=== PATIENT | male | born 1975 | race Caucasian/White ===

== ENCOUNTER 2018-03-07 11:12 | Emergency (ER) | payer MEDICARE, MEDICAID ==
[2018-03-07] MEDS ORDERED: morphine 4 MG/ML VIAL (11:58)
[2018-03-07] MEDS ORDERED: ONDANSETRON 4 MG INJ (11:58)
[2018-03-07] MEDS: ONDANSETRON 4 MG INJ IV (11:59)
[2018-03-07] MEDS: morphine 4 MG/ML VIAL IV ×2 (11:59→13:11)
[2018-03-07 12:09] LABS: ADD MAN DIFF? NO
[2018-03-07 12:11] LABS: WHITE BLOOD COUNT 8.8 10^3/ul (4.8-10.8)
[2018-03-07 12:11] LABS: BASOPHIL # 0.1 10^3/ul (0.0-0.1); BASOPHILS % 0.7 % (0.0-2.0); EOSINOPHILS # 0.4 10^3/ul (0.0-0.5); HEMATOCRIT 40.7 % (42.0-52.0); HEMOGLOBIN 13.6 g/dl (14.0-18.0); LYMPHOCYTES # 1.8 10^3/ul (0.8-2.9); LYMPHOCYTES % 20.7 % (15.0-51.0); MEAN CORPUSCULAR HGB CONC 33.4 g/dl (32.0-37.0); MEAN CORPUSCULAR VOLUME 98.8 fl (82.0-101.0); MEAN PLATELET VOLUME 9.5 fl (7.4-10.4); MONOCYTE # 0.7 10^3/ul (0.3-0.9); MONOCYTES % 7.4 % (0.0-11.0); NEUTROPHIL # 5.8 10^3/ul (1.6-7.5); NEUTROPHILS % 65.9 % (39.0-77.0); PLATELET COUNT 205 10^3/UL (140-415); RED BLOOD COUNT 4.12 10^6/ul (4.70-6.10); RED CELL DISTRIBUTION WIDTH 11.8 % (11.5-14.5)
[2018-03-07 12:31] LABS: INR 0.86; PROTIME 11.8 Sec (11.9-14.9); PT RATIO 0.9
[2018-03-07 12:32] LABS: PARTIAL THROMBOPLASTIN TIME 33.9 Sec (25.0-35.0)
[2018-03-07 12:44] LABS: ALANINE AMINOTRANSFERASE 19 IU/L (13-69); ALBUMIN 4.9 g/dl (3.3-4.9); ALBUMIN/GLOBULIN RATIO 1.58; ALKALINE PHOSPHATASE 95 IU/L (42-121); ANION GAP 22 (8-16); ASPARTATE AMINO TRANSFERASE 25 IU/L (15-46); BILIRUBIN,INDIRECT 0.2 mg/dl (0-1.1); BILIRUBIN,TOTAL 0.2 mg/dl (0.2-1.3); BLOOD UREA NITROGEN 31 mg/dl (7-20); CALCIUM 9.1 mg/dl (8.4-10.2); CARBON DIOXIDE 30 mmol/L (21-31); CHLORIDE 94 mmol/L (97-110); CREATININE 8.39 mg/dl (0.61-1.24); GLUCOSE 113 mg/dl (70-220); LIPASE 152 U/L (23-300); POTASSIUM 4.7 mmol/L (3.5-5.1); SODIUM 141 mmol/L (135-144)
[2018-03-07 13:00] LABS: TROPONIN-I < 0.012 ng/ml (0.000-0.120)
== END 2018-03-07 13:35 | disposition home or self-care (01) ==
LOC: E/R 11:12
DX: R10.9 Unspecified abdominal pain (principal); R11.0 Nausea; R40.2142 Coma scale, eyes open, spontaneous, at arrival to emergency department; R40.2362 Coma scale, best motor response, obeys commands, at arrival to emergency department; R40.2252 Coma scale, best verbal response, oriented, at arrival to emergency department; N18.6 End stage renal disease; Z79.82 Long term (current) use of aspirin; Z87.891 Personal history of nicotine dependence; Z99.2 Dependence on renal dialysis
CPT/HCPCS: 36415; 74176; 80053; 83690; 84484; 85025; 85610; 85730; 93005; 96374; 96375; 96376; 99285-25

== ENCOUNTER 2018-05-28 07:29 | Inpatient (IN) | payer MEDICARE, MEDICAID ==
[2018-05-28 07:55] LABS: ADD MAN DIFF? NO
[2018-05-28 07:57] LABS: BASOPHILS % 0.2 % (0.0-2.0); EOSINOPHILS # 0.1 10^3/ul (0.0-0.5); EOSINOPHILS % 0.3 % (0.0-7.0); HEMATOCRIT 45.6 % (42.0-52.0); HEMOGLOBIN 15.5 g/dl (14.0-18.0); LYMPHOCYTES # 2.2 10^3/ul (0.8-2.9); LYMPHOCYTES % 13.6 % (15.0-51.0); MEAN CORPUSCULAR HEMOGLOBIN 33.5 pg (29.0-33.0); MEAN CORPUSCULAR VOLUME 98.7 fl (82.0-101.0); MEAN PLATELET VOLUME 9.4 fl (7.4-10.4); MONOCYTE # 1.1 10^3/ul (0.3-0.9); MONOCYTES % 6.9 % (0.0-11.0); NEUTROPHIL # 12.6 10^3/ul (1.6-7.5); NEUTROPHILS % 78.5 % (39.0-77.0); PLATELET COUNT 210 10^3/UL (140-415); RED BLOOD COUNT 4.62 10^6/ul (4.70-6.10); RED CELL DISTRIBUTION WIDTH 12.9 % (11.5-14.5)
[2018-05-28 07:57] LABS: WHITE BLOOD COUNT 16.1 10^3/ul (4.8-10.8)
[2018-05-28] MEDS: ONDANSETRON 4 MG INJ IV ×5 (07:58→21:53)
[2018-05-28] MEDS: ACETAMINOPHEN 500 MG TAB PO (07:58)
[2018-05-28] MEDS: HYDROmorphONE 1 MG/ML SYG IV ×2 (07:58→10:16)
[2018-05-28] MEDS: SOD CHLORIDE 0.9% 250 ML IV (08:00)
[2018-05-28 08:15] LABS: ALANINE AMINOTRANSFERASE 23 IU/L (13-69); ALBUMIN 4.8 g/dl (3.3-4.9); ALBUMIN/GLOBULIN RATIO 1.17; ALKALINE PHOSPHATASE 95 IU/L (42-121); ANION GAP 18 (8-16); ASPARTATE AMINO TRANSFERASE 18 IU/L (15-46); BILIRUBIN,INDIRECT 0.9 mg/dl (0-1.1); BILIRUBIN,TOTAL 0.9 mg/dl (0.2-1.3); BLOOD UREA NITROGEN 28 mg/dl (7-20); CALCIUM 9.8 mg/dl (8.4-10.2); CARBON DIOXIDE 34 mmol/L (21-31); CHLORIDE 91 mmol/L (97-110); CREATININE 9.62 mg/dl (0.61-1.24); GLUCOSE 100 mg/dl (70-220); POTASSIUM 4.1 mmol/L (3.5-5.1); SODIUM 139 mmol/L (135-144); TOTAL PROTEIN 8.9 g/dl (6.1-8.1)
[2018-05-28 08:17] LABS: INR 0.88; PARTIAL THROMBOPLASTIN TIME 34.5 Sec (25.0-35.0); PT RATIO 0.9
[2018-05-28] MEDS: SOD CHLORIDE 0.9% 1,000 ML IV (10:05)
[2018-05-28] MEDS: ERTAPENEM SODIUM 1 GM in SOD CHLORIDE 0.9% 100 ML IVPB (10:15)
[2018-05-28] MEDS ORDERED: ACETAMINOPHEN 325 MG TAB PO (10:30)
[2018-05-28] MEDS ORDERED: ERTAPENEM SODIUM 1 GM in SOD CHLORIDE 0.9% 100 ML IVPB (14:30)
[2018-05-28] MEDS: CHOLECALCIFEROL 1,000 UNIT TAB PO (14:30)
[2018-05-28] MEDS: FOLIC ACID 1 MG TAB PO (14:30)
[2018-05-28] MEDS ORDERED: ALPRAZOLAM 0.5 MG TAB PO (14:30)
[2018-05-28] MEDS ORDERED: ZOLPIDEM 5 MG TAB PO (15:00)
[2018-05-28] MEDS: D5W-0.45 NACL + KCL 20 MEQ 1,000 ML IV (15:00)
[2018-05-28] MEDS: HYDROmorphONE 2 MG/ML SYG IV ×2 (15:40→21:53)
[2018-05-28] MEDS: CALCIUM ACETATE 667 MG CAP PO (17:03)
[2018-05-28] MEDS ORDERED: ERTAPENEM SODIUM 0.5 GM in SOD CHLORIDE 0.9% 100 ML IVPB (18:00)
[2018-05-28] MEDS: IVABRADINE HCL 5 MG TABLET PO (21:53)
[2018-05-28] MEDS: ALLOPURINOL 300 MG TAB PO (21:53)
[2018-05-28] MEDS: ATORVASTATIN 40 MG TAB PO (21:53)
[2018-05-28] MEDS: metroNIDAZOLE 500 MG/NS (PMX) 100 ML IVPB (21:53)
[2018-05-29] MEDS: ONDANSETRON 4 MG INJ IV ×2 (03:47→08:41)
[2018-05-29] MEDS: HYDROmorphONE 2 MG/ML SYG IV ×4 (03:47→22:23)
[2018-05-29] MEDS: metroNIDAZOLE 500 MG/NS (PMX) 100 ML IVPB ×3 (05:13→22:23)
[2018-05-29 08:20] LABS: ADD MAN DIFF? NO
[2018-05-29 08:33] LABS: WHITE BLOOD COUNT 10.3 10^3/ul (4.8-10.8)
[2018-05-29 08:33] LABS: BASOPHIL # 0.1 10^3/ul (0.0-0.1); BASOPHILS % 0.6 % (0.0-2.0); EOSINOPHILS # 0.1 10^3/ul (0.0-0.5); EOSINOPHILS % 0.8 % (0.0-7.0); HEMATOCRIT 42.5 % (42.0-52.0); HEMOGLOBIN 13.8 g/dl (14.0-18.0); LYMPHOCYTES % 9.8 % (15.0-51.0); MEAN CORPUSCULAR HEMOGLOBIN 32.9 pg (29.0-33.0); MEAN CORPUSCULAR HGB CONC 32.5 g/dl (32.0-37.0); MEAN CORPUSCULAR VOLUME 101.4 fl (82.0-101.0); MONOCYTE # 0.7 10^3/ul (0.3-0.9); NEUTROPHIL # 8.3 10^3/ul (1.6-7.5); NEUTROPHILS % 81.3 % (39.0-77.0); PLATELET COUNT 201 10^3/UL (140-415); RED BLOOD COUNT 4.19 10^6/ul (4.70-6.10); RED CELL DISTRIBUTION WIDTH 12.7 % (11.5-14.5)
[2018-05-29] MEDS: IVABRADINE HCL 5 MG TABLET PO ×2 (08:36→20:46)
[2018-05-29] MEDS: FOLIC ACID 1 MG TAB PO (08:36)
[2018-05-29] MEDS: CALCIUM ACETATE 667 MG CAP PO ×3 (08:36→18:00)
[2018-05-29] MEDS: CHOLECALCIFEROL 1,000 UNIT TAB PO (08:36)
[2018-05-29] MEDS: ALLOPURINOL 300 MG TAB PO ×2 (08:38→20:46)
[2018-05-29 08:59] LABS: B-TYPE NATRIURETIC PEPTIDE 3000 PG/ML (0-125)
[2018-05-29 09:03] LABS: ANION GAP 27 (8-16); BLOOD UREA NITROGEN 48 mg/dl (7-20); CALCIUM 9.4 mg/dl (8.4-10.2); CARBON DIOXIDE 26 mmol/L (21-31); CHLORIDE 92 mmol/L (97-110); CREATININE 13.22 mg/dl (0.61-1.24); GLUCOSE 61 mg/dl (70-220); POTASSIUM 5.1 mmol/L (3.5-5.1); SODIUM 140 mmol/L (135-144)
[2018-05-29] MEDS: D5W-0.45 NACL + KCL 20 MEQ 1,000 ML IV (11:00)
[2018-05-29] MEDS: PANTOPRAZOLE (EC) 40 MG TAB PO (13:41)
[2018-05-29] MEDS: ERTAPENEM SODIUM 0.5 GM in SOD CHLORIDE 0.9% 100 ML IVPB (18:27)
[2018-05-29] MEDS: ATORVASTATIN 40 MG TAB PO (20:46)
[2018-05-30] MEDS: HYDROmorphONE 2 MG/ML SYG IV ×3 (05:13→18:31)
[2018-05-30] MEDS: PANTOPRAZOLE (EC) 40 MG TAB PO (05:13)
[2018-05-30] MEDS: metroNIDAZOLE 500 MG/NS (PMX) 100 ML IVPB ×4 (05:13→23:38)
[2018-05-30] MEDS: D5W-0.45 NACL + KCL 20 MEQ 1,000 ML IV (07:00)
[2018-05-30 07:07] LABS: ADD MAN DIFF? NO
[2018-05-30 07:12] LABS: WHITE BLOOD COUNT 8.8 10^3/ul (4.8-10.8)
[2018-05-30 07:12] LABS: BASOPHIL # 0.1 10^3/ul (0.0-0.1); BASOPHILS % 0.7 % (0.0-2.0); EOSINOPHILS # 0.5 10^3/ul (0.0-0.5); EOSINOPHILS % 5.1 % (0.0-7.0); HEMATOCRIT 37.3 % (42.0-52.0); HEMOGLOBIN 12.5 g/dl (14.0-18.0); LYMPHOCYTES # 1.7 10^3/ul (0.8-2.9); MEAN CORPUSCULAR HEMOGLOBIN 33.1 pg (29.0-33.0); MEAN CORPUSCULAR HGB CONC 33.5 g/dl (32.0-37.0); MEAN CORPUSCULAR VOLUME 98.7 fl (82.0-101.0); MEAN PLATELET VOLUME 9.9 fl (7.4-10.4); MONOCYTE # 0.7 10^3/ul (0.3-0.9); MONOCYTES % 8.2 % (0.0-11.0); NEUTROPHIL # 5.9 10^3/ul (1.6-7.5); NEUTROPHILS % 66.8 % (39.0-77.0); PLATELET COUNT 196 10^3/UL (140-415); RED BLOOD COUNT 3.78 10^6/ul (4.70-6.10); RED CELL DISTRIBUTION WIDTH 12.6 % (11.5-14.5)
[2018-05-30] MEDS: ONDANSETRON 4 MG INJ IV ×3 (07:38→18:31)
[2018-05-30 07:59] LABS: B-TYPE NATRIURETIC PEPTIDE 2900 PG/ML (0-125)
[2018-05-30] MEDS: CALCIUM ACETATE 667 MG CAP PO ×3 (08:00→18:30)
[2018-05-30 08:01] LABS: BLOOD UREA NITROGEN 65 mg/dl (7-20); CALCIUM 9.1 mg/dl (8.4-10.2); CARBON DIOXIDE 26 mmol/L (21-31); GLUCOSE 75 mg/dl (70-220)
[2018-05-30 08:14] LABS: ANION GAP 25 (8-16); CHLORIDE 91 mmol/L (97-110); POTASSIUM 5.3 mmol/L (3.5-5.1); SODIUM 137 mmol/L (135-144)
[2018-05-30 08:15] LABS: CREATININE 15.97 mg/dl (0.61-1.24)
[2018-05-30] MEDS: CHOLECALCIFEROL 1,000 UNIT TAB PO (09:00)
[2018-05-30] MEDS: IVABRADINE HCL 5 MG TABLET PO ×2 (09:00→21:01)
[2018-05-30] MEDS: FOLIC ACID 1 MG TAB PO (09:00)
[2018-05-30] MEDS: ALLOPURINOL 300 MG TAB PO ×2 (09:00→21:36)
[2018-05-30] MEDS ORDERED: HYDROmorphONE 2 MG/ML SYG IV (11:30)
[2018-05-30 12:17] LABS: HEPATITIS B SURFACE ANTIGEN NEGATIVE (NEGATIVE)
[2018-05-30 12:43] LABS: HEPATITIS B SURFACE ANTIBODY POSITIVE (NEGATIVE)
[2018-05-30] MEDS: ATORVASTATIN 40 MG TAB PO (21:01)
[2018-05-30] MEDS: ERTAPENEM SODIUM 0.5 GM in SOD CHLORIDE 0.9% 100 ML IVPB (21:37)
[2018-05-30] MEDS: DOCOSANOL 2 GM CREAM TOP (22:52)
[2018-05-30] MEDS: CIPROFLOXACIN 0.3% 2.5 ML OPH LEFT EYE (23:12)
[2018-05-31] MEDS: D5W-0.45 NACL + KCL 20 MEQ 1,000 ML IV (03:00)
[2018-05-31] MEDS: metroNIDAZOLE 500 MG/NS (PMX) 100 ML IVPB ×2 (06:17→14:00)
[2018-05-31] MEDS: PANTOPRAZOLE (EC) 40 MG TAB PO (06:18)
[2018-05-31] MEDS: ONDANSETRON 4 MG INJ IV (06:45)
[2018-05-31 07:13] LABS: ADD MAN DIFF? NO
[2018-05-31 07:17] LABS: WHITE BLOOD COUNT 6.2 10^3/ul (4.8-10.8)
[2018-05-31 07:17] LABS: BASOPHILS % 0.6 % (0.0-2.0); EOSINOPHILS # 0.4 10^3/ul (0.0-0.5); EOSINOPHILS % 6.9 % (0.0-7.0); HEMOGLOBIN 13.1 g/dl (14.0-18.0); LYMPHOCYTES # 1.1 10^3/ul (0.8-2.9); LYMPHOCYTES % 17.6 % (15.0-51.0); MEAN CORPUSCULAR HEMOGLOBIN 33.5 pg (29.0-33.0); MEAN CORPUSCULAR HGB CONC 33.6 g/dl (32.0-37.0); MEAN CORPUSCULAR VOLUME 99.7 fl (82.0-101.0); MEAN PLATELET VOLUME 9.7 fl (7.4-10.4); MONOCYTE # 0.5 10^3/ul (0.3-0.9); MONOCYTES % 8.5 % (0.0-11.0); NEUTROPHIL # 4.1 10^3/ul (1.6-7.5); NEUTROPHILS % 66.2 % (39.0-77.0); PLATELET COUNT 189 10^3/UL (140-415); RED BLOOD COUNT 3.91 10^6/ul (4.70-6.10); RED CELL DISTRIBUTION WIDTH 12.3 % (11.5-14.5)
[2018-05-31 07:50] LABS: ANION GAP 21 (8-16); BLOOD UREA NITROGEN 35 mg/dl (7-20); CALCIUM 9.5 mg/dl (8.4-10.2); CARBON DIOXIDE 27 mmol/L (21-31); CHLORIDE 96 mmol/L (97-110); CREATININE 11.95 mg/dl (0.61-1.24); GLUCOSE 81 mg/dl (70-220); POTASSIUM 5.6 mmol/L (3.5-5.1); SODIUM 138 mmol/L (135-144)
[2018-05-31 07:52] LABS: B-TYPE NATRIURETIC PEPTIDE 2850 PG/ML (0-125)
[2018-05-31] MEDS: NA POLYST SULFON 15 GM/60 ML BTL PO (08:30)
[2018-05-31] MEDS: ALLOPURINOL 300 MG TAB PO (09:29)
[2018-05-31] MEDS: CIPROFLOXACIN 0.3% 2.5 ML OPH LEFT EYE ×2 (09:29→12:31)
[2018-05-31] MEDS: IVABRADINE HCL 5 MG TABLET PO (09:29)
[2018-05-31] MEDS: CHOLECALCIFEROL 1,000 UNIT TAB PO (09:29)
[2018-05-31] MEDS: FOLIC ACID 1 MG TAB PO (09:29)
[2018-05-31] MEDS: CALCIUM ACETATE 667 MG CAP PO ×2 (09:30→12:30)
[2018-05-31] MEDS: DOCOSANOL 2 GM CREAM TOP ×2 (09:31→12:31)
[2018-05-31] MEDS: HYDROmorphONE 2 MG/ML SYG IV (12:34)
== END 2018-05-31 17:15 | disposition home or self-care (01) | DRG 377 ==
LOC: E/R 07:29 → 2NE 10:06
PROC: 5A1D70Z Performance of Urinary Filtration, Intermittent, Less than 6 Hours Per Day (ICD-10-PCS; principal; 2018-05-30)
DX: K57.21 Diverticulitis of large intestine with perforation and abscess with bleeding (principal); N18.6 End stage renal disease; I12.0 Hypertensive chronic kidney disease with stage 5 chronic kidney disease or end stage renal disease; I25.2 Old myocardial infarction; I25.10 Atherosclerotic heart disease of native coronary artery without angina pectoris; Z95.810 Presence of automatic (implantable) cardiac defibrillator; Z99.2 Dependence on renal dialysis; F17.200 Nicotine dependence, unspecified, uncomplicated; Z91.14 Patient's other noncompliance with medication regimen; K59.09 Other constipation; M19.90 Unspecified osteoarthritis, unspecified site; F41.9 Anxiety disorder, unspecified; K21.9 Gastro-esophageal reflux disease without esophagitis; I73.9 Peripheral vascular disease, unspecified; J44.9 Chronic obstructive pulmonary disease, unspecified
CPT/HCPCS: 36415; 74176; 80048; 80053; 83880; 85025; 85610; 85730; 86706; 87340; 90935; 96361; 96374; 96375; 99285-25

== ENCOUNTER 2018-10-02 07:15 | Emergency (ER) | payer MEDICARE, MEDICAID ==
[2018-10-02 08:05] LABS: ADD MAN DIFF? NO
[2018-10-02 08:07] LABS: BASOPHIL # 0.1 10^3/ul (0.0-0.1); BASOPHILS % 0.8 % (0.0-2.0); EOSINOPHILS # 0.6 10^3/ul (0.0-0.5); EOSINOPHILS % 8.9 % (0.0-7.0); HEMATOCRIT 33.8 % (42.0-52.0); HEMOGLOBIN 11.2 g/dl (14.0-18.0); LYMPHOCYTES # 1.5 10^3/ul (0.8-2.9); LYMPHOCYTES % 20.4 % (15.0-51.0); MEAN CORPUSCULAR HEMOGLOBIN 33.2 pg (29.0-33.0); MEAN CORPUSCULAR HGB CONC 33.1 g/dl (32.0-37.0); MEAN CORPUSCULAR VOLUME 100.3 fl (82.0-101.0); MEAN PLATELET VOLUME 9.7 fl (7.4-10.4); MONOCYTE # 0.4 10^3/ul (0.3-0.9); MONOCYTES % 5.5 % (0.0-11.0); NEUTROPHIL # 4.6 10^3/ul (1.6-7.5); NEUTROPHILS % 64.1 % (39.0-77.0); PLATELET COUNT 200 10^3/UL (140-415); RED BLOOD COUNT 3.37 10^6/ul (4.70-6.10); RED CELL DISTRIBUTION WIDTH 11.7 % (11.5-14.5)
[2018-10-02 08:07] LABS: WHITE BLOOD COUNT 7.2 10^3/ul (4.8-10.8)
[2018-10-02] MEDS: ONDANSETRON 4 MG INJ IV (08:18)
[2018-10-02] MEDS: FAMOTIDINE 20 MG TAB PO (08:18)
[2018-10-02] MEDS: BELLADONNA/PHENOBARBITAL TAB PO (08:19)
[2018-10-02] MEDS: LIDOCAINE/MYLANTA 40 ML BTL PO (08:19)
[2018-10-02] MEDS: KETOROLAC 15 MG INJ IV (08:21)
[2018-10-02 08:26] LABS: INR 0.89; PROTIME 12.1 Sec (11.9-14.9); PT RATIO 0.9
[2018-10-02 08:27] LABS: ALANINE AMINOTRANSFERASE 16 IU/L (13-69); ALBUMIN 4.4 g/dl (3.3-4.9); ALBUMIN/GLOBULIN RATIO 1.22; ALKALINE PHOSPHATASE 75 IU/L (42-121); ANION GAP 14 (5-13); ASPARTATE AMINO TRANSFERASE 23 IU/L (15-46); BILIRUBIN,INDIRECT 0.2 mg/dl (0-1.1); BILIRUBIN,TOTAL 0.2 mg/dl (0.2-1.3); BLOOD UREA NITROGEN 46 mg/dl (7-20); CALCIUM 9.5 mg/dl (8.4-10.2); CARBON DIOXIDE 32 mmol/L (21-31); CHLORIDE 94 mmol/L (97-110); CREATININE 11.96 mg/dl (0.61-1.24); Estimated GFR 5 mL/min (>60); GLUCOSE 92 mg/dl (70-220); LIPASE 119 U/L (23-300); PARTIAL THROMBOPLASTIN TIME 34.8 Sec (23.0-35.0); POTASSIUM 5.4 mmol/L (3.5-5.1); SODIUM 140 mmol/L (135-144)
[2018-10-02] MEDS: NA POLYST SULFON 15 GM/60 ML BTL PO (09:20)
== END 2018-10-02 10:08 | disposition home or self-care (01) ==
LOC: E/R 07:15
DX: R10.84 Generalized abdominal pain (principal); R40.2142 Coma scale, eyes open, spontaneous, at arrival to emergency department; R40.2362 Coma scale, best motor response, obeys commands, at arrival to emergency department; R40.2252 Coma scale, best verbal response, oriented, at arrival to emergency department; E87.5 Hyperkalemia; J02.9 Acute pharyngitis, unspecified; N18.6 End stage renal disease; Z99.2 Dependence on renal dialysis; Z87.891 Personal history of nicotine dependence; Z79.82 Long term (current) use of aspirin
CPT/HCPCS: 36415; 74176; 80053; 83690; 85025; 85610; 85730; 93005; 96374; 96375; 99285-25

== ENCOUNTER 2018-12-05 07:38 | Emergency (ER) | payer MEDICARE, MEDICAID ==
[2018-12-05 08:00] LABS: ADD MAN DIFF? NO
[2018-12-05 08:05] LABS: WHITE BLOOD COUNT 8.7 10^3/ul (4.8-10.8)
[2018-12-05 08:05] LABS: BASOPHIL # 0.1 10^3/ul (0.0-0.1); BASOPHILS % 0.8 % (0.0-2.0); EOSINOPHILS # 0.4 10^3/ul (0.0-0.5); EOSINOPHILS % 4.6 % (0.0-7.0); HEMATOCRIT 36.3 % (42.0-52.0); LYMPHOCYTES # 1.8 10^3/ul (0.8-2.9); LYMPHOCYTES % 20.8 % (15.0-51.0); MEAN CORPUSCULAR HEMOGLOBIN 31.7 pg (29.0-33.0); MEAN CORPUSCULAR HGB CONC 33.1 g/dl (32.0-37.0); MEAN CORPUSCULAR VOLUME 95.8 fl (82.0-101.0); MEAN PLATELET VOLUME 9.3 fl (7.4-10.4); MONOCYTE # 0.6 10^3/ul (0.3-0.9); MONOCYTES % 6.8 % (0.0-11.0); NEUTROPHIL # 5.8 10^3/ul (1.6-7.5); NEUTROPHILS % 66.5 % (39.0-77.0); PLATELET COUNT 209 10^3/UL (140-415); RED BLOOD COUNT 3.79 10^6/ul (4.70-6.10); RED CELL DISTRIBUTION WIDTH 12.4 % (11.5-14.5)
[2018-12-05 08:26] LABS: ANION GAP 17 (5-13); BLOOD UREA NITROGEN 33 mg/dl (7-20); CALCIUM 9.5 mg/dl (8.4-10.2); CARBON DIOXIDE 30 mmol/L (21-31); CHLORIDE 93 mmol/L (97-110); Estimated GFR 7 mL/min (>60); GLUCOSE 89 mg/dl (70-220); POTASSIUM 4.1 mmol/L (3.5-5.1); SODIUM 140 mmol/L (135-144)
[2018-12-05 08:37] LABS: TROPONIN-I < 0.012 ng/ml (0.000-0.120)
== END 2018-12-05 09:20 | disposition home or self-care (01) ==
LOC: E/R 09:20
DX: R00.2 Palpitations (principal); R40.2142 Coma scale, eyes open, spontaneous, at arrival to emergency department; R40.2252 Coma scale, best verbal response, oriented, at arrival to emergency department; R40.2362 Coma scale, best motor response, obeys commands, at arrival to emergency department; F17.210 Nicotine dependence, cigarettes, uncomplicated; Z79.82 Long term (current) use of aspirin; Z99.2 Dependence on renal dialysis
CPT/HCPCS: 36415; 71045; 80048; 84484; 85025; 93005; 99285-25

== ENCOUNTER 2018-12-09 18:32 | Emergency (ER) | payer MEDICARE, MEDICAID | END 2018-12-09 19:36 | disposition home or self-care (01) | LOC: E/R 18:32 | DX: T82.898A Other specified complication of vascular prosthetic devices, implants and grafts, initial encounter (principal); N18.9 Chronic kidney disease, unspecified; Y73.2 Prosthetic and other implants, materials and accessory gastroenterology and urology devices associated with adverse incidents; Z79.82 Long term (current) use of aspirin | CPT/HCPCS: 99282 ==

== ENCOUNTER 2019-03-06 08:33 | Observation (INO) | payer MEDICARE, MEDICAID ==
[2019-03-06] MEDS: ASPIRIN 81 MG TAB PO (08:53)
[2019-03-06] MEDS: NITROGLYCERIN 2% 1 GM OINT PKT TD ×2 (08:54→10:47)
[2019-03-06] MEDS ORDERED: NITROGLYCERIN (SL) 0.4 MG TAB SL ×2 (09:00→20:30)
[2019-03-06] MEDS: ONDANSETRON 4 MG INJ IV ×3 (09:02→20:24)
[2019-03-06] MEDS: morphine 4 MG/ML VIAL IV ×2 (09:02→13:40)
[2019-03-06 09:16] LABS: ADD MAN DIFF? NO
[2019-03-06 09:21] LABS: WHITE BLOOD COUNT 5.7 10^3/ul (4.8-10.8)
[2019-03-06 09:21] LABS: BASOPHIL # 0.1 10^3/ul (0.0-0.1); BASOPHILS % 1.1 % (0.0-2.0); EOSINOPHILS # 0.1 10^3/ul (0.0-0.5); EOSINOPHILS % 2.5 % (0.0-7.0); HEMATOCRIT 35.1 % (42.0-52.0); HEMOGLOBIN 11.6 g/dl (14.0-18.0); LYMPHOCYTES # 1.3 10^3/ul (0.8-2.9); LYMPHOCYTES % 22.4 % (15.0-51.0); MEAN CORPUSCULAR HEMOGLOBIN 32.3 pg (29.0-33.0); MEAN CORPUSCULAR VOLUME 97.8 fl (82.0-101.0); MEAN PLATELET VOLUME 9.9 fl (7.4-10.4); MONOCYTE # 0.6 10^3/ul (0.3-0.9); MONOCYTES % 11.1 % (0.0-11.0); NEUTROPHIL # 3.6 10^3/ul (1.6-7.5); NEUTROPHILS % 62.7 % (39.0-77.0); PLATELET COUNT 197 10^3/UL (140-415); RED BLOOD COUNT 3.59 10^6/ul (4.70-6.10); RED CELL DISTRIBUTION WIDTH 12.5 % (11.5-14.5)
[2019-03-06 09:45] LABS: ANION GAP 11 (5-13); BLOOD UREA NITROGEN 47 mg/dl (7-20); CALCIUM 8.5 mg/dl (8.4-10.2); CARBON DIOXIDE 32 mmol/L (21-31); CHLORIDE 96 mmol/L (97-110); CREATININE 9.49 mg/dl (0.61-1.24); Estimated GFR 6 mL/min (>60); GLUCOSE 101 mg/dl (70-220); SODIUM 139 mmol/L (135-144)
[2019-03-06 09:56] LABS: TROPONIN-I < 0.012 ng/ml (0.000-0.120)
[2019-03-06] MEDS ORDERED: ACETAMINOPHEN 325 MG TAB PO (10:30)
[2019-03-06 16:19] LABS: CREATINE KINASE 133 IU/L (23-200)
[2019-03-06 16:30] LABS: CK INDEX 0.2; CK-MB 0.24 ng/ml (0.0-2.4); TROPONIN-I < 0.012 ng/ml (0.000-0.120)
[2019-03-06] MEDS ORDERED: CARISOPRODOL 350 MG TAB PO (17:00)
[2019-03-06] MEDS ORDERED: ZOLPIDEM 5 MG TAB PO (17:00)
[2019-03-06] MEDS: CALCIUM ACETATE 667 MG CAP PO (18:44)
[2019-03-06] MEDS: PANTOPRAZOLE 40 MG INJ IV (18:45)
[2019-03-06] MEDS: DOCUSATE SODIUM 250 MG CAP PO (18:45)
[2019-03-06] MEDS: ATORVASTATIN 40 MG TAB PO (20:21)
[2019-03-06] MEDS: HYDROCODONE/APAP (5/325) TAB PO (20:22)
[2019-03-06] MEDS: IVABRADINE HCL 5 MG TABLET PO (21:32)
[2019-03-06 22:28] LABS: CREATINE KINASE 105 IU/L (23-200)
[2019-03-06 22:41] LABS: CK INDEX 0.2; CK-MB < 0.22 ng/ml (0.0-2.4); TROPONIN-I 0.012 ng/ml (0.000-0.120)
[2019-03-07] MEDS: ONDANSETRON 4 MG INJ IV ×3 (00:03→09:15)
[2019-03-07] MEDS: HYDROCODONE/APAP (5/325) TAB PO ×3 (00:04→14:14)
[2019-03-07 06:50] LABS: ADD MAN DIFF? NO
[2019-03-07 06:56] LABS: WHITE BLOOD COUNT 5.5 10^3/ul (4.8-10.8)
[2019-03-07 06:56] LABS: BASOPHIL # 0.1 10^3/ul (0.0-0.1); BASOPHILS % 0.9 % (0.0-2.0); EOSINOPHILS # 0.3 10^3/ul (0.0-0.5); EOSINOPHILS % 5.1 % (0.0-7.0); HEMATOCRIT 35.2 % (42.0-52.0); HEMOGLOBIN 11.6 g/dl (14.0-18.0); LYMPHOCYTES # 1.6 10^3/ul (0.8-2.9); LYMPHOCYTES % 28.9 % (15.0-51.0); MEAN CORPUSCULAR HEMOGLOBIN 32.6 pg (29.0-33.0); MEAN CORPUSCULAR VOLUME 98.9 fl (82.0-101.0); MEAN PLATELET VOLUME 10.1 fl (7.4-10.4); MONOCYTE # 0.5 10^3/ul (0.3-0.9); MONOCYTES % 9.4 % (0.0-11.0); NEUTROPHIL # 3.1 10^3/ul (1.6-7.5); NEUTROPHILS % 55.5 % (39.0-77.0); PLATELET COUNT 191 10^3/UL (140-415); RED BLOOD COUNT 3.56 10^6/ul (4.70-6.10); RED CELL DISTRIBUTION WIDTH 12.2 % (11.5-14.5)
[2019-03-07 07:20] LABS: HDL CHOLESTEROL 36 mg/dl (27-67); LDL CHOLESTEROL,CALCULATED 81 mg/dl; TRIGLYCERIDES 134 mg/dl (0-149)
[2019-03-07 07:20] LABS: CHOLESTEROL 144 mg/dl (100-200)
[2019-03-07 07:33] LABS: ANION GAP 20 (5-13); BLOOD UREA NITROGEN 65 mg/dl (7-20); CALCIUM 8.7 mg/dl (8.4-10.2); CARBON DIOXIDE 25 mmol/L (21-31); CHLORIDE 97 mmol/L (97-110); CREATININE 12.86 mg/dl (0.61-1.24); Estimated GFR 4 mL/min (>60); GLUCOSE 75 mg/dl (70-220); POTASSIUM 5.3 mmol/L (3.5-5.1); SODIUM 142 mmol/L (135-144)
[2019-03-07 07:47] LABS: B-TYPE NATRIURETIC PEPTIDE 7310 PG/ML (0-125)
[2019-03-07] MEDS: CALCIUM ACETATE 667 MG CAP PO ×3 (07:55→17:55)
[2019-03-07] MEDS: CHOLECALCIFEROL 1,000 UNIT TAB PO (08:13)
[2019-03-07] MEDS: IVABRADINE HCL 5 MG TABLET PO (08:13)
[2019-03-07] MEDS: ASPIRIN (EC) 81 MG TAB PO (08:14)
[2019-03-07] MEDS: MULTIVIT/CA CARB/B CMPLX/FA TAB PO (08:14)
[2019-03-07] MEDS: REGADENOSON 0.4 MG/5 ML SYG (11:50)
[2019-03-07] MEDS ORDERED: ALBUMIN HUMAN 25% 100 ML IV (12:30)
[2019-03-07] MEDS ORDERED: SODIUM CHLORIDE 0.9% 1L BAG IV* (12:30)
[2019-03-07] MEDS ORDERED: HEPARIN 1000 UNITS/ML 10 ML INJ HE (12:30)
[2019-03-07] MEDS: SODIUM POLYSTYRENE 15 GM KIT (POWDER + SORBITOL) PO (15:26)
== END 2019-03-07 19:51 | disposition home or self-care (01) ==
LOC: E/R 08:33 → TEL 10:05
DX: R07.9 Chest pain, unspecified (principal); I25.10 Atherosclerotic heart disease of native coronary artery without angina pectoris; I12.0 Hypertensive chronic kidney disease with stage 5 chronic kidney disease or end stage renal disease; N18.6 End stage renal disease; Z99.2 Dependence on renal dialysis; M19.90 Unspecified osteoarthritis, unspecified site; E78.5 Hyperlipidemia, unspecified; E78.00 Pure hypercholesterolemia, unspecified; Z79.82 Long term (current) use of aspirin; Z95.810 Presence of automatic (implantable) cardiac defibrillator
CPT/HCPCS: 36415; 71045; 78452; 80048; 80061; 82550; 82553; 83880; 84484; 85025; 87081; 93005; 93017; 93306; 96374; 96375; 99285-25; G0378